=== PATIENT | female | born 1990 | race Two or more races ===

== ENCOUNTER → 2019-04-12 | Emergency (ER) | payer OTHER ==
[~2019-04-12] VITALS: Ht 157.5 cm; Wt 132.9 kg
[~2019-04-12] MED LIST: IRON1TAB4 PO; PROVERA2.5 MG PO
== END | disposition home or self-care (01) ==
LOC: ER 21:20
DX: N83.291 Other ovarian cyst, right side (principal); N93.8 Other specified abnormal uterine and vaginal bleeding

== ENCOUNTER 2019-05-05 12:31 | Emergency (ER) | payer OTHER ==
[~2019-05-05] VITALS: Ht 157.5 cm; Wt 132.9 kg
== END 2019-05-05 17:05 | disposition home or self-care (01) ==
LOC: ER 12:31
DX: E28.2 Polycystic ovarian syndrome (principal); D64.9 Anemia, unspecified